=== PATIENT | female | born 1995 | race Caucasian/White ===

== ENCOUNTER 2016-06-25 21:35 | Emergency (ER) | payer OTHER ==
[~2016-06-25] VITALS: Ht 157.5 cm; Wt 59.0 kg
--- NOTE | 2016-06-25 22:33 | ED THROAT/DENTAL COMPLAINT ---
History of Present Illness General Chief Complaint: General Adult Stated Complaint: ?SOMETHING STUCK IN THROAT/TROUBLE BREATHING Source: patient Exam Limitations: no limitations Vital Signs & Intake/Output Vital Signs & Intake/Output Vital Signs Date Time Temp Pulse Resp B/P Pulse O2 O2 Flow FiO2 Ox Delivery Rate 06/26 0317 97.2 74 18 114/64 99 Room Air 06/26 0115 97.2 77 18 116/61 99 Room Air 06/25 2159 97.0 61 18 115/74 100 Room Air ED Intake and Output 06/26 0000 06/25 1200 Intake Total Output Total Balance Patient 130 lb Weight Allergies Coded Allergies: NO KNOWN ALLERGIES (06/23/12) Reconcile Medications Ranitidine HCl 300 MG TABLET 1 TAB PO QPM REFLUX (Reported) Triage Note: PT TO ED STATING "I THINK SOMETHING IS STUCK IN MY THROAT" PT REPORTS SHE WAS EATING IRISH FOOD FOR LUNCH YESTERDAY AND "EVER SINCE THEN I FEEL LIKE SOMETHING IS STUCK" PT HAS BEEN ABLE TO EAT AND DRINK NORMALLY ALL DAY STATING "I JUST FEEL LIKE SOMETHING IS THERE" Triage Nurses Notes Reviewed? yes Onset: Gradual Duration: day(s):, continues in ED Timing: single episode today Injury Environment: home Severity: mild Modifying Factors: Improves With: rest. Associated Symptoms: "I feel like there is something there." : No Patient currently breastfeeds: No HPI: 21 yo woman presents with sensation of a foreign body in her throat. She notes that yesterday she was eating at a [place] restaurant. She did not eat anything with bones. She ate some chicken and rice. Afterwards, she noticed that it felt like there was "something in my throat." It is not painful. She has no problem breathing, swallowing, talking, or eating. She is otherwise well. Past History Travel History Traveled to [place] past 21 day No Medical History Any Pertinent Medical History? see below for history Neurological: NONE EENT: NONE Cardiovascular: NONE Respiratory: NONE Gastrointestinal: NONE Hepatic: NONE Renal: NONE Musculoskeletal: NONE Psychiatric: NONE Endocrine: NONE Blood Disorders: NONE Cancer(s): NONE Surgical History Surgical History: none Psychosocial History What is your primary language [place] Tobacco Use: Never used ETOH Use: denies use Illicit Drug Use: denies illicit drug use Family History Hx Contributory? No Review of Systems Review of Systems Constitutional: Reports: no symptoms. EENTM: Reports: no symptoms. Respiratory: Reports: no symptoms. Cardiovascular: Reports: no symptoms. GI: Reports: no symptoms. Genitourinary: Reports: no symptoms. Musculoskeletal: Reports: no symptoms. Skin: Reports: no symptoms. Neurological/Psychological: Reports: no symptoms. Hematologic/Endocrine: Reports: no symptoms. Immunologic/Allergic: Reports: no symptoms. All Other Systems: Reviewed and Negative Physical Exam Physical Exam General Appearance: well developed/nourished, no apparent distress Head: atraumatic, normal appearance Eyes: Bilateral: normal appearance. Nose: normal inspection Mouth/Throat: normal mouth inspection, pharynx normal Neck: normal inspection, supple, full range of motion, no stridor Cardiovascular/Respiratory: normal breath sounds Back: normal inspection Neurologic/Psych: no motor/sensory deficits, awake, alert, oriented x 3 Skin: intact, normal color, warm/dry Core Measures ACS in differential dx? No Severe Sepsis Present: No Septic Shock Present: No Progress Differential Diagnosis: foreign body vs other. Plan of Care: Orders Procedure Date/time Status URINE 06/25 2322 Complete Laboratory Tests 06/25/162326: Urine Test NEGATIVE Diagnostic Imaging: Viewed by Me: Radiology Read. Discussed w/RAD: Radiology Read. Radiology Impression: soft tissue neck... no foreign body Comments: PATIENT: PADDY OLIVA PRESENT AGE: 21 PATIENT ACCOUNT NO: [id number] : 94 LOCATION: [facility] ORDERING PHYSICIAN: NAHED RAI MD SERVICE DATE: 06/25/16 EXAM TYPE: RAD - XRY-SOFT TISSUE NECK EXAMINATION: XR SOFT TISSUE NECK CLINICAL INDICATION: Foreign body sensation COMPARISON: None. TECHNIQUE: AP and lateral views. FINDINGS: Calcific density along the anterior margin of the prevertebral soft tissues at the level of C5 has the appearance of laryngeal cartilage calcification. No suspicious findings to suggest radiopaque foreign body. No significant prevertebral soft tissue swelling. Cervical spine alignment is anatomic. Vertebral body heights and intervertebral disc spaces are maintained. IMPRESSION: No radiopaque foreign body identified. DICTATED BY: JULIÁN POTTS MD DATE/TIME DICTATED:06/26/16126 CITY SECRETARY:LEONEL DATE/TIME TRANSCRIBED:06/26/16126 CONFIDENTIAL, DO NOT COPY WITHOUT APPROPRIATE AUTHORIZATION. <Electronically signed in Other Vendor System> SIGNED BY: JULIÁN POTTS MD 06/26/16 0134 Departure Departure Disposition: HOME OR SELF CARE Condition: Stable Clinical Impression Primary Impression: Dysphagia Referrals: RASHMI PENA,CARLOTA Agudelo (PCP/Family) Departure Forms: Customer Survey General Discharge Information Comments pt feeling better... soft tissue neck is negative... pt safe for discharge with follow up by ENT on Tuesday. Counseled close follow up if symptoms progress or change.
[2016-06-25] MEDS ORDERED: RANITIDINE HCL300 M1 PO (22:45)
--- NOTE | 2016-06-26 01:34 | RADIOLOGY REPORT ---
EXAMINATION: XR SOFT TISSUE NECK CLINICAL INDICATION: Foreign body sensation COMPARISON: None. TECHNIQUE: AP and lateral views. FINDINGS: Calcific density along the anterior margin of the prevertebral soft tissues at the level of C5 has the appearance of laryngeal cartilage calcification. No suspicious findings to suggest radiopaque foreign body. No significant prevertebral soft tissue swelling. Cervical spine alignment is anatomic. Vertebral body heights and intervertebral disc spaces are maintained. IMPRESSION: No radiopaque foreign body identified.
[2016-06-26 03:17] VITALS: BP 114/64
== END 2016-06-26 03:19 ==
LOC: ERH 21:35
DX: R13.10 Dysphagia, unspecified (principal)
CPT/HCPCS: 70360; 81025